=== PATIENT | male | born 1980 | race Caucasian/White ===

== ENCOUNTER 2020-12-13 05:52 | Day surgery (SDC) | payer BC ==
[2020-12-13] MEDS ORDERED: Dextrose 5%-Lactated Ringers 1,000 ML IV SCH (06:20)
[2020-12-13] MEDS ORDERED: Lidocaine 1% with EPINEPHrine 1:100,000 50 ML MDV ONE (06:30)
[2020-12-13] MEDS ORDERED: Bupivacaine 0.5% 50 ML MDV ONE (06:30)
[2020-12-13] MEDS ORDERED: Albuterol/Ipratropium 3.0-0.5 MG/3 ML Neb Soln NEB ONE (06:59)
[2020-12-13] MEDS ORDERED: Scopolamine 1.5 MG Transdermal Patch TRDERM SCH (07:00)
[2020-12-13] MEDS ORDERED: ceFAZolin 2 GM in Premix Bag 1 BAG IV ONE (07:00)
[2020-12-13] MEDS ORDERED: fentaNYL 250 MCG/5 ML SDV ONE ×2 (07:14→07:49)
[2020-12-13] MEDS ORDERED: Ondansetron 4 MG/2 ML SDV ONE (07:15)
[2020-12-13] MEDS ORDERED: Rocuronium 50 MG/5 ML Vial ONE (07:15)
[2020-12-13] MEDS ORDERED: Propofol 200 MG/20 ML SDV ONE (07:15)
[2020-12-13] MEDS ORDERED: Dexamethasone 4 MG/ML SDV ONE (07:15)
[2020-12-13] MEDS ORDERED: Neostigmine Methylsulfate 1 MG/ML 5 ML Syringe ONE (07:15)
[2020-12-13] MEDS ORDERED: Succinylcholine 200 MG/10 ML MDV ONE (07:15)
[2020-12-13] MEDS ORDERED: Glycopyrrolate 0.2 MG/ML 5 ML MDV ONE (07:15)
[2020-12-13] MEDS ORDERED: HYDROmorphone 2 MG Tab PO PRN (10:11)
--- NOTE | 2020-12-14 15:18 | OR ---
DATE OF PROCEDURE: 12/13/2020 SURGEON: Javier Love MD PREOPERATIVE DIAGNOSIS: Lipomas involving right upper back and left lower abdomen and groin. POSTOPERATIVE DIAGNOSES: 1. Subfascial lipoma, right upper back. 2. Subcutaneous lipoma of left groin and lower abdomen. PROCEDURES PERFORMED: 1. Excision of subfascial lipoma, right upper back (15824). 2. Excision of subcutaneous lipoma, left lower abdomen and groin (70994). ANESTHESIA: General. INDICATIONS FOR PROCEDURE: This is a 40-year-old male presenting with 2 lipomas, one on the right upper back is quite large, and the plan will be to proceed with excision of this with a general anesthetic. The lipoma in the lower left abdomen and groin area is somewhat smaller, but still significantly sized and increasingly symptomatic. The plan is to proceed with excision of both of these. He will likely have a drain placed in the upper back region given the size of the area. Potential risks including bleeding, infection, and recurrence of the lipomas were all gone over, and the patient wishes to proceed. DETAILS OF PROCEDURE: The patient was taken to the operating room, and after general endotracheal anesthesia was induced, he was placed in the prone position. The upper back area was prepped and draped. A transverse incision over the lipoma was then made in the right upper back and carried down through the skin, subcutaneous tissue, and through the investing fascia. This was a quite complex lipoma with several side branches dissecting through the areas of the fascia. The lipoma in general was between the investing fascia and the musculature, i.e., the subfascial. Eventually, it came out in what appeared to be an intact manner and measured 15 cm in maximal dimension. The area was then inspected. No bleeding was noted. A 10 round Marcel-Ashley drain was then placed through a stab wound lateral to the incision, and the incision then closed with 2-0 Vicryl at the fascial level, 3-0 Vicryl subdermal stitch, and lesia for the skin. The drain was fixed with a 3-0 Vicryl stitch. After a dressing had been applied to the back, the patient was then positioned in a supine position, and the lower abdomen and groin areas were prepped and draped. An elliptical incision around the lipomatous tissue on the left lower abdomen and groin was then made and this along with some of the overlying skin removed. This lipoma was in the subcutaneous tissue plane, and upon its removal, was measured at 4.5 cm. The incision was closed with 2 layers of 3-0 and 4-0 Vicryl stitch deep and then lesia for the skin as well. A dressing was applied. The patient was taken to the recovery room in satisfactory condition. There were no evident complications. Javier Love MD /[id number]
== END 2020-12-13 11:05 | disposition home or self-care (01) ==
LOC: JP.SDS 05:52
PROVIDERS: ATTEND Surgery
DX: D17.1 Benign lipomatous neoplasm of skin and subcutaneous tissue of trunk (principal); D17.24 Benign lipomatous neoplasm of skin and subcutaneous tissue of left leg; R19.4 Change in bowel habit; R06.83 Snoring; G47.33 Obstructive sleep apnea (adult) (pediatric); K21.9 Gastro-esophageal reflux disease without esophagitis; Z98.890 Other specified postprocedural states; Z88.8 Allergy status to other drugs, medicaments and biological substances
CPT/HCPCS: 21933; 22903; A9270; J0330; J0690; J1100; J2020; J2405; J2704; J2710; J3010; J3490; J7121; 88304

== ENCOUNTER 2020-12-26 22:08 | Emergency (ER) | payer BC ==
[2020-12-26] MEDS ORDERED: cefTRIAXone 1 GM, Lidocaine 1% 2.1 ML IM ONE ×2 (22:39)
--- NOTE | 2020-12-26 22:42 | EDM.PDOC ---
ED HPI GENERAL MEDICAL PROBLEM - General Chief Complaint: General Stated Complaint: INFLAMED INCISION Time Seen by Provider: 12/26/20 22:20 Source of Information: Reports: Patient, RN Notes Reviewed History Limitations: Reports: No Limitations - History of Present Illness INITIAL COMMENTS - FREE TEXT/NARRATIVE: 40-year-old gentleman presents emergency department today with concern about cellulitis, he was evaluated in the clinic this morning started on Bactrim a line was drawn however the redness has moved outside the line, He is concerned he is only received 2 doses of Bactrim Left Hip Pain Score (Numeric/FACES): 3 - Related Data Allergies Allergy/AdvReac Type Severity Reaction Status Date / Time erythromycin base Allergy Edema Verified 12/26/20 22:19 Home Meds: Home Meds Melatonin 10 mg PO BEDTIME 12/13/20 [History] Sulfamethoxazole/Trimethoprim [Sulfamethoxazole-Tmp Ds Tablet] 1 tab PO BID 12/26/20 [History] Past Medical History Respiratory History: Reports: Asthma Gastrointestinal History: Reports: Chronic Constipation, GERD Endocrine/Metabolic History: Reports: Obesity/BMI 30+ Dermatologic History: Reports: Other (See Below) Other Dermatologic History: lipoma back and hip - Infectious Disease History Infectious Disease History: Reports: Chicken Pox, Novel Coronavirus - Past Surgical History Endocrine Surgical History: Reports: Thyroidectomy, Other (See Below) Other Endocrine Surgeries/Procedures: partial thyroidectomy due to infection Dermatological Surgical History: Reports: Other (See Below) Social & Family History - Tobacco Use Tobacco Use Status *Q: Never Tobacco User - Caffeine Use Caffeine Use: Reports: Soda - Recreational Drug Use Recreational Drug Use: No ED ROS GENERAL - Review of Systems Review Of Systems: See Below Constitutional: Denies: Fever, Chills Respiratory: Reports: No Symptoms Cardiovascular: Reports: No Symptoms GI/Abdominal: Reports: No Symptoms Skin: Reports: Erythema ED EXAM, GENERAL - Physical Exam Exam: See Below Free Text/Narrative:: Examination of the integument system he does have some erythema and some warmth around the surgical wound it is about 1 cm outside of the line it is slightly tender to the touch Exam Limited By: No Limitations General Appearance: Alert, WD/WN, No Apparent Distress Course - Vital Signs Last Recorded V/S: Last Vital Signs Temp 97.0 F 12/26/20 22:28 Pulse 81 12/26/20 22:28 Resp 17 12/26/20 22:28 BP 122/72 12/26/20 22:28 Pulse Ox 96 12/26/20 22:28 - Orders/Labs/Meds Orders: Active Orders 24 hr Category Date Time Status cefTRIAXone 1 GM,Lidocaine 1% 2.1 ML Med 12/26/20 22:39 Ordered cefTRIAXone [Rocephin] 1 gm Lidocaine 1% [Xylocaine-MPF 1%] 2.1 ml IM ONETIME Departure - Departure Time of Disposition: 22:41 Disposition: Home, Self-Care 01 Condition: Fair Clinical Impression: Cellulitis of hip, left - Discharge Information Instructions: Cellulitis, Adult Referrals: PCP,None [Primary Care Provider] - Additional Instructions: Continue with the Bactrim antibiotics that have been prescribed to you, keep your follow-up appointment with your primary care for reevaluation call return to the emergency department worsening of symptoms Sepsis Event Note (ED) - Evaluation Sepsis Screening Result: No Definite Risk - Focused Exam Vital Signs: Vital Signs Temp Pulse Resp BP Pulse Ox 12/26/20 22:28 97.0 F 81 17 122/72 96 - My Orders Last 24 Hours: My Active Orders 12/26/20 22:39 cefTRIAXone 1 GM,Lidocaine 1% 2.1 ML cefTRIAXone [Rocephin] 1 gm Lidocaine 1% [Xylocaine-MPF 1%] 2.1 ml IM ONETIME - Assessment/Plan Last 24 Hours: My Active Orders 12/26/20 22:39 cefTRIAXone 1 GM,Lidocaine 1% 2.1 ML cefTRIAXone [Rocephin] 1 gm Lidocaine 1% [Xylocaine-MPF 1%] 2.1 ml IM ONETIME Plan: Assessment Acuity = acute Site and laterality = local cellulitis from left hip Etiology = probable bacterial cause Manifestations = rash Location of injury = Home Lab values = none Plan He is going to continue with the Bactrim already provided I did initiate 1 g dose of Rocephin have him continue with his follow-up that is already scheduled with his primary care This note was dictated using [employer] voice recognition software please call with any questions on syntax or grammar.
== END 2020-12-26 23:04 | disposition home or self-care (01) ==
LOC: JP.ED 22:08
DX: L03.116 Cellulitis of left lower limb (principal); J45.909 Unspecified asthma, uncomplicated; E66.9 Obesity, unspecified; Z68.32 Body mass index [BMI] 32.0-32.9, adult; Z86.16 Personal history of COVID-19; Z88.1 Allergy status to other antibiotic agents
CPT/HCPCS: 96372; 99283; J0696

== ENCOUNTER 2025-03-14 13:15 | Emergency (ER) | payer BC ==
[2025-03-14] MEDS: Bacitracin Oint 1 GM U/D Packet TOP ONE (14:05)
== END 2025-03-14 15:13 | disposition home or self-care (01) ==
LOC: JP.ED 13:15
DX: S61.213A Laceration without foreign body of left middle finger without damage to nail, initial encounter (principal); J45.909 Unspecified asthma, uncomplicated; E66.9 Obesity, unspecified; Z68.34 Body mass index [BMI] 34.0-34.9, adult; Z86.16 Personal history of COVID-19; Z88.1 Allergy status to other antibiotic agents; Z79.899 Other long term (current) drug therapy; W45.8XXA Other foreign body or object entering through skin, initial encounter
CPT/HCPCS: 12001; 73140; 99283; J2003